=== PATIENT | female | born 1975 | race African-American/Black ===

== ENCOUNTER 2021-02-01 07:42 | Emergency (ER) | payer OTHER ==
[~2021-02-01] VITALS: Ht 170.2 cm; Wt 56.7 kg
[2021-02-01] MEDS ORDERED: ALBUTEROL (0.083%) 2.5MG/3ML NEB HHN STA (07:55)
[2021-02-01] MEDS ORDERED: IPRATROPIUM BROMIDE (0.02%) 0.5MG/2.5ML NEB HHN STA (07:55)
[2021-02-01 08:49] LABS: BASOPHILS % 1.4 % (0.0-2.0); EOSINOPHILS % 0.8 % (0.0-5.0); HEMATOCRIT. 29.9 % (36.0-48.0); HEMOGLOBIN. 9.8 g/dL (12.0-16.0); LYMPHOCYTES % 23.5 % (20.0-50.0); MEAN CORPUSCULAR HEMOGLOBIN 23.7 pg (28.0-32.0); MEAN CORPUSCULAR VOLUME 72.5 fL (81.0-99.0); MONOCYTES % 10.4 % (2.0-8.0); NEUTROPHILS % 63.9 % (40.0-76.0); RED BLOOD CELL COUNT 4.12 mill/uL (4.2-5.4); RED CELL DISTRIBUTION WIDTH 18.9 % (11.6-14.6)
[2021-02-01 08:53] LABS: CHLORIDE 107 mEq/L (98-107)
[2021-02-01 09:02] LABS: CLARITY URINE CLEAR (CLEAR); COLOR URINE YELLOW (YELLOW); KETONES URINE NEGATIVE (NEGATIVE); LEUKOCYTE ESTERASE URINE NEGATIVE (NEGATIVE); NITRITE URINE NEGATIVE (NEGATIVE); OCCULT BLOOD URINE TRACE (NEGATIVE); PH URINE 5.5 (4.5-8.0); PROTEIN URINE 3+ (NEGATIVE); SPECIFIC GRAVITY URINE 1.014 (1.005-1.030); UROBILINOGEN URINE 0.2 E.U./dL (0.2-1.0)
[2021-02-01] MEDS ORDERED: ACETAMINOPHEN 325MG TABLET PO ONE (13:45)
[2021-02-01 14:56] VITALS: BP 155/99
== END 2021-02-01 15:16 | disposition short-term general hospital (02) ==
LOC: ER 07:42
DX: R06.02 Shortness of breath (principal); I10 Essential (primary) hypertension; E11.9 Type 2 diabetes mellitus without complications; Z20.822 Contact with and (suspected) exposure to COVID-19; Z88.0 Allergy status to penicillin
CPT/HCPCS: 36415; 71045; 80053; 81003; 83880; 84484; 85025; 87426; 87804; 93005; 94640; 99285

== ENCOUNTER 2021-10-05 11:04 | Emergency (ER) | payer OTHER, MEDICAID ==
[~2021-10-05] VITALS: Ht 165.1 cm; Wt 68.0 kg
[2021-10-05 13:07] LABS: CHLORIDE 96 mEq/L (98-107)
[2021-10-05 13:15] LABS: HEMATOCRIT. 25.3 % (36.0-48.0); HEMOGLOBIN. 8.2 g/dL (12.0-16.0); MEAN CORPUSCULAR HEMOGLOBIN 22.2 pg (28.0-32.0); MEAN CORPUSCULAR VOLUME 68.4 fL (81.0-99.0); RED BLOOD CELL COUNT 3.69 mill/uL (4.2-5.4); RED CELL DISTRIBUTION WIDTH 20.6 % (11.6-14.6)
[2021-10-05 13:54] LABS: PLATELET 133 x1000/uL (130-400)
[2021-10-05 13:57] LABS: PLATELET ESTIMATE NORMAL
[2021-10-05 13:58] LABS: CLARITY URINE CLEAR (CLEAR); COLOR URINE YELLOW (YELLOW); KETONES URINE 2+ (NEGATIVE); LEUKOCYTE ESTERASE URINE NEGATIVE (NEGATIVE); NITRITE URINE NEGATIVE (NEGATIVE); OCCULT BLOOD URINE 1+ (NEGATIVE); PH URINE 6.5 (4.5-8.0); PROTEIN URINE 3+ (NEGATIVE); SPECIFIC GRAVITY URINE 1.013 (1.005-1.030); UROBILINOGEN URINE 0.2 E.U./dL (0.2-1.0)
[2021-10-05] MEDS ORDERED: SODIUM CHLORIDE 0.9% 1,000 ML IV ONE (14:30)
[2021-10-05] MEDS ORDERED: VANCOMYCIN 1G PREMIX 200 ML IV ONE (14:30)
[2021-10-05] MEDS ORDERED: MEROPENEM 1,000 MG in SODIUM CHLORIDE 0.9% 100 ML IV ONE (14:30)
[2021-10-05] MEDS ORDERED: HYDRALAZINE 20MG/ML VIAL IV ONE (14:30)
[2021-10-05 15:07] LABS: BG BASE EXCESS -0.1 mmol/L (-2.0-2.0); BG CARBOXYHEMOGLOBIN 0.4 % (0.5-1.5); BG DEOXYHEMOGLOBIN 6.3 % (0.0-5.0); BG FRACTION INSPIRED OXYGEN 21; BG HCO3 ACT 23.2 mmol/L (22.0-26.0); BG METHEMOGLOBIN 0.3 % (0.0-1.5); BG OXYGEN SATURATION 93.7 % (92.0-98.5); BG PCO2 32.6 mmHg (35.0-45.0); BG SAMPLE SITE RIGHT RADIAL; BG TOTAL HEMOGLOBIN 9.3 g/dL (12.0-18.0); BG VENT MODE ROOM AIR
[2021-10-05 16:41] VITALS: BP 160/120
== END 2021-10-05 17:40 | disposition short-term general hospital (02) ==
LOC: ER 11:11 → CANBEDREQ 20:13
DX: G93.40 Encephalopathy, unspecified (principal); R00.0 Tachycardia, unspecified; E11.9 Type 2 diabetes mellitus without complications; Z88.3 Allergy status to other anti-infective agents; Z94.2 Lung transplant status; Z86.16 Personal history of COVID-19; Z20.822 Contact with and (suspected) exposure to COVID-19
CPT/HCPCS: 36415; 36600; 70450; 71045; 80053; 81003; 82375; 82805; 82962; 83605; 84145; 84484; 85025; 87040; 87086; 87426; 93005; 96365; 96368; 96375; 99285; J0360; J2185; J3370; J7030; J7050

== ENCOUNTER 2021-11-09 01:21 | Emergency (ER) | payer OTHER, MEDICAID ==
[~2021-11-09] VITALS: Ht 170.2 cm; Wt 53.0 kg
[2021-11-09] MEDS ORDERED: ACETAMINOPHEN 325MG TABLET PO STA (02:22)
[2021-11-09] MEDS ORDERED: PIPERACILLIN/TAZ 3.375G PREMIX 50 ML IV ONE (02:30)
[2021-11-09] MEDS ORDERED: SODIUM CHLORIDE 0.9% 1000ML BAG (SEPSIS BOLUS) IV ONE (02:30)
[2021-11-09] MEDS ORDERED: VANCOMYCIN 1G PREMIX 200 ML IV ONE (02:30)
[2021-11-09 03:12] LABS: BASOPHILS % 0.4 % (0.0-2.0); EOSINOPHILS % 1.5 % (0.0-5.0); HEMATOCRIT. 23.3 % (36.0-48.0); HEMOGLOBIN. 7.6 g/dL (12.0-16.0); LYMPHOCYTES % 18.1 % (20.0-50.0); MEAN CORPUSCULAR VOLUME 70.7 fL (81.0-99.0); MEAN PLATELET VOLUME 8.9 fl (7.4-10.4); MONOCYTES % 12.7 % (2.0-8.0); NEUTROPHILS % 67.3 % (40.0-76.0); PLATELET 262 x1000/uL (130-400); RED BLOOD CELL COUNT 3.29 mill/uL (4.2-5.4); RED CELL DISTRIBUTION WIDTH 20.8 % (11.6-14.6)
[2021-11-09 03:20] LABS: CHLORIDE 100 mEq/L (98-107)
[2021-11-09 03:30] LABS: CREATINE KINASE 20 IU/L (26-192)
[2021-11-09 07:56] LABS: CLARITY URINE CLEAR (CLEAR); COLOR URINE YELLOW (YELLOW); KETONES URINE TRACE (NEGATIVE); LEUKOCYTE ESTERASE URINE NEGATIVE (NEGATIVE); NITRITE URINE NEGATIVE (NEGATIVE); OCCULT BLOOD URINE NEGATIVE (NEGATIVE); PH URINE 5.5 (4.5-8.0); PROTEIN URINE 3+ (NEGATIVE); SPECIFIC GRAVITY URINE 1.017 (1.005-1.030)
[2021-11-09 09:28] VITALS: BP 106/72
== END 2021-11-09 09:42 | disposition short-term general hospital (02) ==
LOC: ER 01:33
DX: R50.9 Fever, unspecified (principal); A41.9 Sepsis, unspecified organism; Z94.2 Lung transplant status; E11.9 Type 2 diabetes mellitus without complications; I48.91 Unspecified atrial fibrillation; G20 Parkinson's disease; Z88.3 Allergy status to other anti-infective agents; Z20.822 Contact with and (suspected) exposure to COVID-19
CPT/HCPCS: 36415; 71045; 80053; 81003; 82550; 83605; 83880; 84145; 84484; 85025; 87040; 87086; 87426; 87804; 93005; 96365; 96366; 96368; 99291; J2543; J3370; J7030

== ENCOUNTER 2022-05-06 19:35 | Inpatient (IN) | payer OTHER, MEDICAID ==
[~2022-05-06] VITALS: Ht 170.2 cm; Wt 65.3 kg
[2022-05-06] MEDS ORDERED: FUROSEMIDE 40MG/4ML VIAL IV ONE (20:15)
[2022-05-06] MEDS ORDERED: NITROGLYCERIN OINT 1GM/INCH UDPKT TD ONE (20:15)
[2022-05-06] MEDS ORDERED: ASPIRIN 81MG TABLET PO ONE (20:15)
[2022-05-06 20:31] LABS: BASOPHILS % 0.2 % (0.0-2.0); EOSINOPHILS % 0.1 % (0.0-5.0); HEMATOCRIT. 25.6 % (36.0-48.0); HEMOGLOBIN. 8.1 g/dL (12.0-16.0); LYMPHOCYTES % 7.7 % (20.0-50.0); MEAN PLATELET VOLUME 8.8 fl (7.4-10.4); MONOCYTES % 4.9 % (2.0-8.0); NEUTROPHILS % 87.1 % (40.0-76.0); PLATELET 144 x1000/uL (130-400); RED CELL DISTRIBUTION WIDTH 17.8 % (11.6-14.6)
[2022-05-06 20:43] LABS: CHLORIDE 94 mEq/L (98-107)
[2022-05-06 20:54] LABS: BG BASE EXCESS 12.3 mmol/L (-2.0-2.0); BG CARBOXYHEMOGLOBIN 1.3 % (0.5-1.5); BG DEOXYHEMOGLOBIN 1.2 % (0.0-5.0); BG FRACTION INSPIRED OXYGEN 60; BG HCO3 ACT 39.8 mmol/L (22.0-26.0); BG METHEMOGLOBIN 0.3 % (0.0-1.5); BG OXYGEN SATURATION 98.8 % (92.0-98.5); BG OXYHEMOGLOBIN 97.2 % (94.0-97.0); BG PCO2 72.2 mmHg (35.0-45.0); BG PH 7.359 (7.350-7.450); BG PO2 255.7 mmHg (75.0-100.0); BG TOTAL HEMOGLOBIN 9.2 g/dL (12.0-18.0); BG VENT MODE MASK - BIPAP
[2022-05-07] VITALS (11 sets, daily range): BP systolic 108–151; BP diastolic 60–86
[2022-05-07] MEDS ORDERED: LEVO50TA8 MT (07:23)
[2022-05-07] MEDS ORDERED: APIX2.5T MT (07:23)
[2022-05-07] MEDS ORDERED: TACR1CAP MT (07:23)
[2022-05-07] MEDS ORDERED: LOPHC2 MT (07:23)
[2022-05-07] MEDS ORDERED: AMLO10TA80 MT (07:23)
[2022-05-07] MEDS ORDERED: TORS10TA17 MT (07:23)
[2022-05-07] MEDS ORDERED: PREG75CA75 PO (07:23)
[2022-05-07] MEDS ORDERED: PRAV20TA57 MT (07:23)
[2022-05-07] MEDS ORDERED: LANS15CA17 MT (07:23)
[2022-05-07] MEDS ORDERED: MEGE40TA8 MT (07:23)
[2022-05-07] MEDS ORDERED: PRED10TA MT (07:23)
[2022-05-07] MEDS ORDERED: METO5TAB2 PO (07:23)
[2022-05-07] MEDS ORDERED: FERR325T6 PO (07:23)
[2022-05-07] MEDS ORDERED: ISAV186C2 MT (07:23)
[2022-05-07] MEDS ORDERED: FOLI0.8T27 PO (07:30)
[2022-05-07] MEDS ORDERED: ALBU05 NEB (07:30)
[2022-05-07] MEDS ORDERED: NON FORMULARY PATIENT HOME MED XX SCH (08:15)
[2022-05-07] MEDS: AMLODIPINE 10MG TABLET PO SCH (09:00)
[2022-05-07] MEDS ORDERED: LANSOPRAZOLE 15MG DR CAPSULE PO SCH (09:00)
[2022-05-07] MEDS: ALBUTEROL (0.083%) 2.5MG/3ML NEB HHN SCH ×3 (09:03→19:33)
[2022-05-07] MEDS ORDERED: DEXTROSE 50% WATER 50ML SYRINGE IV PRN (10:00)
[2022-05-07] MEDS ORDERED: TORSEMIDE 10MG TABLET PO SCH (10:00)
[2022-05-07] MEDS: TACROLIMUS 1MG CAPSULE PO SCH ×2 (10:10→16:44)
[2022-05-07] MEDS: FOLIC ACID/VITAMIN B COMP W-C TABLET PO SCH (10:10)
[2022-05-07] MEDS: PREDNISONE 10MG TABLET PO SCH (10:10)
[2022-05-07] MEDS: PREGABALIN 75MG CAPSULE PO SCH ×2 (10:10→16:44)
[2022-05-07] MEDS: APIXABAN 2.5 MG TABLET PO SCH ×2 (10:10→16:44)
[2022-05-07] MEDS: LEVOTHYROXINE SODIUM 50MCG TABLET PO SCH (10:10)
[2022-05-07] MEDS: MEGESTROL ACETATE 40MG TABLET PO SCH ×2 (10:10→16:44)
[2022-05-07] MEDS: METOCLOPRAMIDE HCL 5MG TABLET PO SCH ×2 (10:11→16:44)
[2022-05-07] MEDS: OMEPRAZOLE 20MG CAPSULE EXTENDED RELEASE PO SCH (10:11)
[2022-05-07] MEDS ORDERED: IPRATROPIUM/ALBUTEROL 0.5-3(2.5)MG/3ML NEB HHN PRN (11:30)
[2022-05-07] MEDS: BLOOD SUGAR DIAGNOSTIC STRIP TEST SCH ×3 (11:50→21:00)
[2022-05-07] MEDS: INSULIN LISPRO 100 UNITS/ML SUBCUT SCH ×3 (12:44→21:15)
[2022-05-07] MEDS: FUROSEMIDE 40MG/4ML VIAL IVP SCH (16:43)
[2022-05-07] MEDS ORDERED: FUROSEMIDE 40MG/4ML VIAL IVP SCH (18:00)
[2022-05-08] VITALS (15 sets, daily range): BP systolic 115–152; BP diastolic 66–135
[2022-05-08] MEDS: ALBUTEROL (0.083%) 2.5MG/3ML NEB HHN SCH ×5 (01:36→20:40)
[2022-05-08 05:36] LABS: BASOPHILS % 0.4 % (0.0-2.0); EOSINOPHILS % 1.1 % (0.0-5.0); HEMATOCRIT. 24.7 % (36.0-48.0); HEMOGLOBIN. 7.8 g/dL (12.0-16.0); LYMPHOCYTES % 15.5 % (20.0-50.0); MEAN CORPUSCULAR HEMOGLOBIN 28.2 pg (28.0-32.0); MEAN CORPUSCULAR VOLUME 89.3 fL (81.0-99.0); MEAN PLATELET VOLUME 9.1 fl (7.4-10.4); MONOCYTES % 8.1 % (2.0-8.0); NEUTROPHILS % 74.9 % (40.0-76.0); PLATELET 124 x1000/uL (130-400); RED BLOOD CELL COUNT 2.76 mill/uL (4.2-5.4); RED CELL DISTRIBUTION WIDTH 17.3 % (11.6-14.6)
[2022-05-08] MEDS: FUROSEMIDE 40MG/4ML VIAL IVP SCH ×2 (06:22→17:29)
[2022-05-08] MEDS: BLOOD SUGAR DIAGNOSTIC STRIP TEST SCH ×4 (08:10→21:00)
[2022-05-08] MEDS: FOLIC ACID/VITAMIN B COMP W-C TABLET PO SCH (08:27)
[2022-05-08] MEDS: LEVOTHYROXINE SODIUM 50MCG TABLET PO SCH (08:27)
[2022-05-08] MEDS: APIXABAN 2.5 MG TABLET PO SCH ×2 (08:27→17:29)
[2022-05-08] MEDS: METOCLOPRAMIDE HCL 5MG TABLET PO SCH ×2 (08:27→17:29)
[2022-05-08] MEDS: PREDNISONE 10MG TABLET PO SCH (08:27)
[2022-05-08] MEDS: OMEPRAZOLE 20MG CAPSULE EXTENDED RELEASE PO SCH (08:27)
[2022-05-08] MEDS: TACROLIMUS 1MG CAPSULE PO SCH ×2 (08:27→17:29)
[2022-05-08] MEDS: MEGESTROL ACETATE 40MG TABLET PO SCH ×2 (08:27→17:29)
[2022-05-08] MEDS: PREGABALIN 75MG CAPSULE PO SCH ×2 (08:29→17:29)
[2022-05-08] MEDS: AMLODIPINE 10MG TABLET PO SCH (08:29)
[2022-05-08] MEDS: INSULIN LISPRO 100 UNITS/ML SUBCUT SCH ×4 (08:30→21:34)
[2022-05-08] MEDS ORDERED: TORSEMIDE 10MG TABLET PO SCH (09:00)
[2022-05-08] MEDS ORDERED: FUROSEMIDE 40MG/4ML VIAL IVP SCH (09:00)
[2022-05-08 12:05] LABS: BG BASE EXCESS 10.4 mmol/L (-2.0-2.0); BG CARBOXYHEMOGLOBIN 0.5 % (0.5-1.5); BG DEOXYHEMOGLOBIN 1.3 % (0.0-5.0); BG FRACTION INSPIRED OXYGEN 60; BG HCO3 ACT 38.6 mmol/L (22.0-26.0); BG METHEMOGLOBIN 0.3 % (0.0-1.5); BG OXYGEN SATURATION 98.7 % (92.0-98.5); BG OXYHEMOGLOBIN 97.9 % (94.0-97.0); BG PCO2 82.2 mmHg (35.0-45.0); BG PO2 208.1 mmHg (75.0-100.0); BG SAMPLE SITE RIGHT RADIAL; BG TOTAL HEMOGLOBIN 8.2 g/dL (12.0-18.0); BG VENT MODE MASK - SIMPLE
[2022-05-08] MEDS ORDERED: METOLAZONE 2.5MG TABLET PO SCH (12:15)
[2022-05-08] MEDS ORDERED: HYDROMORPHONE HCL 2MG TABLET PO SCH (12:15)
[2022-05-08] MEDS ORDERED: NALOXONE HCL 0.4MG/ML VIAL IV PRN (17:30)
[2022-05-09] VITALS (12 sets, daily range): BP systolic 109–148; BP diastolic 58–86
[2022-05-09] MEDS: ALBUTEROL (0.083%) 2.5MG/3ML NEB HHN SCH ×4 (02:56→20:47)
[2022-05-09 06:03] LABS: HEMATOCRIT 23.6 % (36.0-48.0); HEMOGLOBIN 7.6 g/dL (12.0-16.0); MEAN CORPUSCULAR HEMOGLOBIN 28.7 pg (28.0-32.0); MEAN CORPUSCULAR VOLUME 89.4 fL (81.0-99.0); PLATELET 106 x1000/uL (130-400); RED BLOOD CELL COUNT 2.64 mill/uL (4.2-5.4); RED CELL DISTRIBUTION WIDTH 17.7 % (11.6-14.6)
[2022-05-09] MEDS: FUROSEMIDE 40MG/4ML VIAL IVP SCH ×2 (06:45→17:35)
[2022-05-09] MEDS: BLOOD SUGAR DIAGNOSTIC STRIP TEST SCH ×4 (07:52→21:00)
[2022-05-09] MEDS: INSULIN LISPRO 100 UNITS/ML SUBCUT SCH ×5 (07:52→21:12)
[2022-05-09] MEDS: LEVOTHYROXINE SODIUM 50MCG TABLET PO SCH (07:55)
[2022-05-09] MEDS: OMEPRAZOLE 20MG CAPSULE EXTENDED RELEASE PO SCH (07:55)
[2022-05-09] MEDS: PREDNISONE 10MG TABLET PO SCH (09:04)
[2022-05-09] MEDS: PREGABALIN 75MG CAPSULE PO SCH ×2 (09:04→17:35)
[2022-05-09] MEDS: METOCLOPRAMIDE HCL 5MG TABLET PO SCH ×2 (09:04→17:35)
[2022-05-09] MEDS: AMLODIPINE 10MG TABLET PO SCH (09:04)
[2022-05-09] MEDS: TACROLIMUS 1MG CAPSULE PO SCH ×2 (09:04→17:35)
[2022-05-09] MEDS: MEGESTROL ACETATE 40MG TABLET PO SCH ×2 (09:05→17:35)
[2022-05-09] MEDS: FOLIC ACID/VITAMIN B COMP W-C TABLET PO SCH (09:07)
[2022-05-09] MEDS: APIXABAN 2.5 MG TABLET PO SCH ×2 (09:08→15:54)
[2022-05-09 13:32] LABS: BG BASE EXCESS 18.4 mmol/L (-2.0-2.0); BG CARBOXYHEMOGLOBIN 0.8 % (0.5-1.5); BG DEOXYHEMOGLOBIN 2.5 % (0.0-5.0); BG FRACTION INSPIRED OXYGEN 40; BG METHEMOGLOBIN 0.3 % (0.0-1.5); BG OXYGEN SATURATION 97.5 % (92.0-98.5); BG OXYHEMOGLOBIN 96.4 % (94.0-97.0); BG PCO2 80.8 mmHg (35.0-45.0); BG PH 7.373 (7.350-7.450); BG PO2 113.8 mmHg (75.0-100.0); BG SAMPLE SITE RIGHT RADIAL; BG TOTAL HEMOGLOBIN 7.8 g/dL (12.0-18.0); BG VENT MODE MASK - BIPAP
[2022-05-10] VITALS (12 sets, daily range): BP systolic 103–147; BP diastolic 53–95
[2022-05-10] MEDS: ALBUTEROL (0.083%) 2.5MG/3ML NEB HHN SCH ×4 (02:25→18:00)
[2022-05-10] MEDS: FUROSEMIDE 40MG/4ML VIAL IVP SCH ×2 (06:20→17:31)
[2022-05-10] MEDS ORDERED: LACTULOSE 20G/30ML UDC PO PRN (07:15)
[2022-05-10] MEDS: BLOOD SUGAR DIAGNOSTIC STRIP TEST SCH ×4 (07:30→21:00)
[2022-05-10] MEDS ORDERED: METOLAZONE 2.5MG TABLET PO SCH (08:00)
[2022-05-10] MEDS: DOCUSATE SODIUM 250MG CAPSULE PO SCH (08:47)
[2022-05-10] MEDS: MEGESTROL ACETATE 40MG TABLET PO SCH ×2 (08:47→17:31)
[2022-05-10] MEDS: OMEPRAZOLE 20MG CAPSULE EXTENDED RELEASE PO SCH (08:47)
[2022-05-10] MEDS: PREGABALIN 75MG CAPSULE PO SCH ×2 (08:47→17:31)
[2022-05-10] MEDS: LEVOTHYROXINE SODIUM 50MCG TABLET PO SCH (08:47)
[2022-05-10] MEDS: PREDNISONE 10MG TABLET PO SCH (08:48)
[2022-05-10] MEDS: METOCLOPRAMIDE HCL 5MG TABLET PO SCH ×2 (08:48→17:31)
[2022-05-10] MEDS: FOLIC ACID/VITAMIN B COMP W-C TABLET PO SCH (08:48)
[2022-05-10] MEDS: APIXABAN 2.5 MG TABLET PO SCH (08:48)
[2022-05-10] MEDS: TACROLIMUS 1MG CAPSULE PO SCH ×2 (08:48→17:31)
[2022-05-10] MEDS: INSULIN LISPRO 100 UNITS/ML SUBCUT SCH ×4 (08:49→22:02)
[2022-05-10] MEDS: AMLODIPINE 10MG TABLET PO SCH (08:51)
[2022-05-10] MEDS: PANTOPRAZOLE SODIUM 40 MG/VIAL IV SCH (15:00)
[2022-05-10 15:50] LABS: TOTAL IRON BINDING CAPACITY 310 ug/dL (250-450)
[2022-05-10 16:12] LABS: FERRITIN 326 ng/mL (10-291)
[2022-05-10 16:13] LABS: FOLIC ACID (FOLATE) SERUM >20 ng/mL ng/mL (>5.38); VITAMIN B12 SERUM 547 pg/mL (211-911)
[2022-05-10] MEDS: HYDROMORPHONE HCL 2MG TABLET PO PRN (18:38)
[2022-05-11] VITALS (13 sets, daily range): BP systolic 118–136; BP diastolic 69–84
[2022-05-11] MEDS: LEVOTHYROXINE SODIUM 50MCG TABLET PO SCH (06:24)
[2022-05-11] MEDS: FUROSEMIDE 40MG/4ML VIAL IVP SCH ×2 (06:24→17:32)
[2022-05-11] MEDS: BLOOD SUGAR DIAGNOSTIC STRIP TEST SCH ×4 (07:30→20:31)
[2022-05-11] MEDS: INSULIN LISPRO 100 UNITS/ML SUBCUT SCH ×4 (08:00→20:40)
[2022-05-11 08:11] LABS: BASOPHILS % 0.4 % (0.0-2.0); EOSINOPHILS % 1.2 % (0.0-5.0); HEMATOCRIT. 26.4 % (36.0-48.0); HEMOGLOBIN. 8.6 g/dL (12.0-16.0); LYMPHOCYTES % 18.7 % (20.0-50.0); MEAN CORPUSCULAR HEMOGLOBIN 28.9 pg (28.0-32.0); MEAN CORPUSCULAR VOLUME 89.3 fL (81.0-99.0); MEAN PLATELET VOLUME 9.7 fl (7.4-10.4); MONOCYTES % 8.8 % (2.0-8.0); NEUTROPHILS % 70.9 % (40.0-76.0); PLATELET 110 x1000/uL (130-400); RED BLOOD CELL COUNT 2.96 mill/uL (4.2-5.4)
[2022-05-11] MEDS: ALBUTEROL (0.083%) 2.5MG/3ML NEB HHN SCH ×4 (08:17→20:36)
[2022-05-11] MEDS: TACROLIMUS 1MG CAPSULE PO SCH ×2 (08:56→17:32)
[2022-05-11] MEDS: PREDNISONE 10MG TABLET PO SCH (08:56)
[2022-05-11] MEDS: MEGESTROL ACETATE 40MG TABLET PO SCH ×2 (08:56→17:32)
[2022-05-11] MEDS: PREGABALIN 75MG CAPSULE PO SCH ×2 (08:56→17:32)
[2022-05-11] MEDS: PANTOPRAZOLE SODIUM 40 MG/VIAL IV SCH (08:56)
[2022-05-11] MEDS: AMLODIPINE 10MG TABLET PO SCH (08:57)
[2022-05-11] MEDS: DOCUSATE SODIUM 250MG CAPSULE PO SCH (08:57)
[2022-05-11] MEDS: METOCLOPRAMIDE HCL 5MG TABLET PO SCH ×2 (08:57→17:32)
[2022-05-11] MEDS ORDERED: ENOXAPARIN 40MG/0.4ML SYR SUBCUT SCH (09:00)
[2022-05-11] MEDS: FOLIC ACID/VITAMIN B COMP W-C TABLET PO SCH (09:03)
[2022-05-11] MEDS: ASPIRIN 81MG TABLET PO SCH (09:03)
[2022-05-11] MEDS: ACETAMINOPHEN 325MG TABLET PO PRN (10:54)
[2022-05-11] MEDS ORDERED: METO2.5T2 MT (11:16)
[2022-05-11] MEDS ORDERED: IRON SUCROSE COMPLEX 100 MG/5 ML ML IV NR (13:15)
[2022-05-11] MEDS: APIXABAN 2.5 MG TABLET PO SCH (17:35)
[2022-05-11] MEDS: HYDROMORPHONE HCL 2MG TABLET PO PRN (20:08)
[2022-05-12] VITALS (12 sets, daily range): BP systolic 121–146; BP diastolic 74–88
[2022-05-12] MEDS: ALBUTEROL (0.083%) 2.5MG/3ML NEB HHN SCH ×4 (02:07→20:47)
[2022-05-12] MEDS: ONDANSETRON HCL 4MG/2ML INJ IV PRN (04:43)
[2022-05-12] MEDS: FUROSEMIDE 40MG/4ML VIAL IVP SCH (06:20)
[2022-05-12] MEDS: LEVOTHYROXINE SODIUM 50MCG TABLET PO SCH (06:20)
[2022-05-12 07:40] LABS: BASOPHILS % 0.4 % (0.0-2.0); EOSINOPHILS % 0.7 % (0.0-5.0); HEMATOCRIT. 25.9 % (36.0-48.0); HEMOGLOBIN. 8.4 g/dL (12.0-16.0); LYMPHOCYTES % 10.6 % (20.0-50.0); MEAN CORPUSCULAR HEMOGLOBIN 28.7 pg (28.0-32.0); MONOCYTES % 10.3 % (2.0-8.0); PLATELET 99 x1000/uL (130-400); RED BLOOD CELL COUNT 2.91 mill/uL (4.2-5.4); RED CELL DISTRIBUTION WIDTH 16.6 % (11.6-14.6)
[2022-05-12] MEDS: BLOOD SUGAR DIAGNOSTIC STRIP TEST SCH ×4 (07:57→21:47)
[2022-05-12] MEDS: INSULIN LISPRO 100 UNITS/ML SUBCUT SCH ×4 (08:00→21:00)
[2022-05-12] MEDS: AMLODIPINE 10MG TABLET PO SCH (09:55)
[2022-05-12] MEDS: PREGABALIN 75MG CAPSULE PO SCH ×2 (09:55→18:31)
[2022-05-12] MEDS: METOCLOPRAMIDE HCL 5MG TABLET PO SCH ×2 (09:56→18:30)
[2022-05-12] MEDS: APIXABAN 2.5 MG TABLET PO SCH ×2 (09:56→18:37)
[2022-05-12] MEDS: DOCUSATE SODIUM 250MG CAPSULE PO SCH (09:56)
[2022-05-12] MEDS: TACROLIMUS 1MG CAPSULE PO SCH ×2 (09:56→18:31)
[2022-05-12] MEDS: FOLIC ACID/VITAMIN B COMP W-C TABLET PO SCH (09:56)
[2022-05-12] MEDS: ASPIRIN 81MG TABLET PO SCH (09:56)
[2022-05-12] MEDS: MEGESTROL ACETATE 40MG TABLET PO SCH ×2 (09:56→18:31)
[2022-05-12] MEDS: PREDNISONE 10MG TABLET PO SCH (09:56)
[2022-05-12] MEDS: FAMOTIDINE 20MG/2ML VIAL IV SCH (09:59)
[2022-05-12] MEDS ORDERED: METOPROLOL TARTRATE 25MG TABLET PO NR (11:30)
[2022-05-12] MEDS ORDERED: CEFTRIAXONE 1 G PREMIX 50 ML IV SCH (14:00)
[2022-05-12] MEDS ORDERED: IRON SUCROSE COMPLEX 100 MG/5 ML ML IV SCH (16:30)
[2022-05-12] MEDS: CEFTRIAXONE 1,000 MG in DEXTROSE 5% WATER 50 ML IV SCH (16:46)
[2022-05-12 18:07] LABS: CLARITY URINE CLEAR (CLEAR); COLOR URINE YELLOW (YELLOW); KETONES URINE NEGATIVE (NEGATIVE); LEUKOCYTE ESTERASE URINE NEGATIVE (NEGATIVE); NITRITE URINE NEGATIVE (NEGATIVE); OCCULT BLOOD URINE 3+ (NEGATIVE); PROTEIN URINE 3+ (NEGATIVE); SPECIFIC GRAVITY URINE 1.012 (1.005-1.030); UROBILINOGEN URINE 0.2 E.U./dL (0.2-1.0)
[2022-05-12] MEDS: FUROSEMIDE 40MG TABLET PO SCH (18:31)
[2022-05-12] MEDS: METOPROLOL TARTRATE 25MG TABLET PO SCH (21:47)
[2022-05-12] MEDS: BENZONATATE 100MG CAPSULE PO SCH (22:47)
[2022-05-12] MEDS ORDERED: BENZONATATE 200MG CAPSULE PO SCH (23:00)
[2022-05-13] VITALS (13 sets, daily range): BP systolic 113–143; BP diastolic 64–91
[2022-05-13] MEDS: ALBUTEROL (0.083%) 2.5MG/3ML NEB HHN SCH ×4 (02:36→20:55)
[2022-05-13] MEDS: BLOOD SUGAR DIAGNOSTIC STRIP TEST SCH ×4 (07:48→20:50)
[2022-05-13] MEDS: INSULIN LISPRO 100 UNITS/ML SUBCUT SCH ×4 (08:00→20:50)
[2022-05-13] MEDS: ASPIRIN 81MG TABLET PO SCH ×2 (08:54→09:00)
[2022-05-13] MEDS: FAMOTIDINE 20MG/2ML VIAL IV SCH (08:54)
[2022-05-13] MEDS: DOCUSATE SODIUM 250MG CAPSULE PO SCH (08:55)
[2022-05-13] MEDS: BENZONATATE 100MG CAPSULE PO SCH ×3 (08:55→17:51)
[2022-05-13] MEDS: FOLIC ACID/VITAMIN B COMP W-C TABLET PO SCH (08:55)
[2022-05-13] MEDS: METOCLOPRAMIDE HCL 5MG TABLET PO SCH ×2 (08:55→17:51)
[2022-05-13] MEDS: APIXABAN 2.5 MG TABLET PO SCH ×2 (08:55→17:52)
[2022-05-13] MEDS: TACROLIMUS 1MG CAPSULE PO SCH ×2 (08:55→17:52)
[2022-05-13] MEDS: PREDNISONE 10MG TABLET PO SCH (08:55)
[2022-05-13] MEDS: LEVOTHYROXINE SODIUM 50MCG TABLET PO SCH (08:55)
[2022-05-13] MEDS: FUROSEMIDE 40MG TABLET PO SCH ×2 (08:55→17:51)
[2022-05-13] MEDS: PREGABALIN 75MG CAPSULE PO SCH ×2 (08:55→17:51)
[2022-05-13] MEDS: METOPROLOL TARTRATE 25MG TABLET PO SCH ×2 (08:56→20:53)
[2022-05-13] MEDS: MEGESTROL ACETATE 40MG TABLET PO SCH ×2 (08:56→17:51)
[2022-05-13] MEDS ORDERED: BENZONATATE 200MG CAPSULE PO SCH (09:00)
[2022-05-13] MEDS: CEFTRIAXONE 1,000 MG in DEXTROSE 5% WATER 50 ML IV SCH (12:08)
[2022-05-13 12:45] LABS: BASOPHILS % 0.5 % (0.0-2.0); EOSINOPHILS % 1.2 % (0.0-5.0); HEMATOCRIT. 28.1 % (36.0-48.0); HEMOGLOBIN. 9.1 g/dL (12.0-16.0); LYMPHOCYTES % 12.8 % (20.0-50.0); MEAN CORPUSCULAR HEMOGLOBIN 28.8 pg (28.0-32.0); MEAN CORPUSCULAR VOLUME 88.7 fL (81.0-99.0); MEAN PLATELET VOLUME 9.1 fl (7.4-10.4); MONOCYTES % 7.3 % (2.0-8.0); NEUTROPHILS % 78.2 % (40.0-76.0); PLATELET 116 x1000/uL (130-400); RED BLOOD CELL COUNT 3.17 mill/uL (4.2-5.4); RED CELL DISTRIBUTION WIDTH 16.5 % (11.6-14.6)
[2022-05-13 13:00] LABS: CHLORIDE 94 mEq/L (98-107)
[2022-05-14] VITALS (12 sets, daily range): BP systolic 103–126; BP diastolic 59–84
[2022-05-14] MEDS: ALBUTEROL (0.083%) 2.5MG/3ML NEB HHN SCH ×4 (01:14→21:04)
[2022-05-14 06:56] LABS: BASOPHILS % 0.5 % (0.0-2.0); EOSINOPHILS % 1.2 % (0.0-5.0); HEMATOCRIT. 26.8 % (36.0-48.0); HEMOGLOBIN. 8.7 g/dL (12.0-16.0); LYMPHOCYTES % 16.2 % (20.0-50.0); MEAN CORPUSCULAR HEMOGLOBIN 28.7 pg (28.0-32.0); MEAN PLATELET VOLUME 9.3 fl (7.4-10.4); MONOCYTES % 8.1 % (2.0-8.0); PLATELET 114 x1000/uL (130-400); RED BLOOD CELL COUNT 3.04 mill/uL (4.2-5.4); RED CELL DISTRIBUTION WIDTH 16.1 % (11.6-14.6)
[2022-05-14] MEDS: METOCLOPRAMIDE HCL 5MG TABLET PO SCH ×2 (08:04→17:56)
[2022-05-14] MEDS: PREDNISONE 10MG TABLET PO SCH (08:04)
[2022-05-14] MEDS: PREGABALIN 75MG CAPSULE PO SCH ×2 (08:04→17:57)
[2022-05-14] MEDS: LEVOTHYROXINE SODIUM 50MCG TABLET PO SCH (08:04)
[2022-05-14] MEDS: FOLIC ACID/VITAMIN B COMP W-C TABLET PO SCH (08:04)
[2022-05-14] MEDS: FUROSEMIDE 40MG TABLET PO SCH ×2 (08:04→17:57)
[2022-05-14] MEDS: APIXABAN 2.5 MG TABLET PO SCH ×2 (08:04→17:56)
[2022-05-14] MEDS: FAMOTIDINE 20MG/2ML VIAL IV SCH (08:04)
[2022-05-14] MEDS: MEGESTROL ACETATE 40MG TABLET PO SCH ×2 (08:05→17:56)
[2022-05-14] MEDS: DOCUSATE SODIUM 250MG CAPSULE PO SCH (08:05)
[2022-05-14] MEDS: METOPROLOL TARTRATE 25MG TABLET PO SCH ×2 (08:05→20:05)
[2022-05-14] MEDS: BENZONATATE 100MG CAPSULE PO SCH ×3 (08:05→17:57)
[2022-05-14] MEDS: BLOOD SUGAR DIAGNOSTIC STRIP TEST SCH ×4 (08:09→20:09)
[2022-05-14] MEDS: INSULIN LISPRO 100 UNITS/ML SUBCUT SCH ×4 (08:09→20:08)
[2022-05-14] MEDS: ASPIRIN 81MG TABLET PO SCH (08:10)
[2022-05-14] MEDS: TACROLIMUS 1MG CAPSULE PO SCH ×2 (08:12→17:57)
[2022-05-14] MEDS: CEFTRIAXONE 1,000 MG in DEXTROSE 5% WATER 50 ML IV SCH (13:00)
[2022-05-14 13:28] LABS: BG BASE EXCESS 9.7 mmol/L (-2.0-2.0); BG CARBOXYHEMOGLOBIN 0.1 % (0.5-1.5); BG DEOXYHEMOGLOBIN 0.9 % (0.0-5.0); BG FRACTION INSPIRED OXYGEN 100; BG HCO3 ACT 36.9 mmol/L (22.0-26.0); BG METHEMOGLOBIN 0.3 % (0.0-1.5); BG OXYGEN SATURATION 99.1 % (92.0-98.5); BG OXYHEMOGLOBIN 98.7 % (94.0-97.0); BG PCO2 67.2 mmHg (35.0-45.0); BG PH 7.358 (7.350-7.450); BG PO2 347.7 mmHg (75.0-100.0); BG SAMPLE SITE RIGHT RADIAL; BG TOTAL HEMOGLOBIN 9.6 g/dL (12.0-18.0); BG VENT MODE MASK - NRB
[2022-05-14] MEDS: ONDANSETRON HCL 4MG/2ML INJ IV PRN (22:17)
[2022-05-15] VITALS (13 sets, daily range): BP systolic 103–130; BP diastolic 64–93
[2022-05-15] MEDS: ALBUTEROL (0.083%) 2.5MG/3ML NEB HHN SCH ×4 (02:13→20:20)
[2022-05-15] MEDS: BLOOD SUGAR DIAGNOSTIC STRIP TEST SCH ×4 (07:30→20:15)
[2022-05-15] MEDS: INSULIN LISPRO 100 UNITS/ML SUBCUT SCH ×4 (08:00→20:27)
[2022-05-15 08:15] LABS: BASOPHILS % 0.5 % (0.0-2.0); EOSINOPHILS % 1.1 % (0.0-5.0); HEMATOCRIT. 27.1 % (36.0-48.0); HEMOGLOBIN. 8.7 g/dL (12.0-16.0); LYMPHOCYTES % 19.8 % (20.0-50.0); MEAN CORPUSCULAR HEMOGLOBIN 28.4 pg (28.0-32.0); MEAN CORPUSCULAR VOLUME 88.2 fL (81.0-99.0); MEAN PLATELET VOLUME 9.7 fl (7.4-10.4); MONOCYTES % 8.7 % (2.0-8.0); NEUTROPHILS % 69.9 % (40.0-76.0); PLATELET 122 x1000/uL (130-400); RED BLOOD CELL COUNT 3.07 mill/uL (4.2-5.4); RED CELL DISTRIBUTION WIDTH 16.3 % (11.6-14.6)
[2022-05-15] MEDS: APIXABAN 2.5 MG TABLET PO SCH ×2 (09:00→18:03)
[2022-05-15] MEDS: FOLIC ACID/VITAMIN B COMP W-C TABLET PO SCH (09:00)
[2022-05-15] MEDS: ASPIRIN 81MG TABLET PO SCH (09:00)
[2022-05-15] MEDS: PREGABALIN 75MG CAPSULE PO SCH ×2 (10:09→18:00)
[2022-05-15] MEDS: FAMOTIDINE 20MG/2ML VIAL IV SCH (10:09)
[2022-05-15] MEDS: LEVOTHYROXINE SODIUM 50MCG TABLET PO SCH (10:10)
[2022-05-15] MEDS: METOPROLOL TARTRATE 25MG TABLET PO SCH ×2 (10:10→20:17)
[2022-05-15] MEDS: BENZONATATE 100MG CAPSULE PO SCH ×3 (10:11→18:00)
[2022-05-15] MEDS: FUROSEMIDE 40MG TABLET PO SCH ×2 (10:11→18:00)
[2022-05-15] MEDS: TACROLIMUS 1MG CAPSULE PO SCH ×2 (10:11→18:00)
[2022-05-15] MEDS: PREDNISONE 10MG TABLET PO SCH (10:11)
[2022-05-15] MEDS: METOCLOPRAMIDE HCL 5MG TABLET PO SCH ×2 (10:11→18:00)
[2022-05-15] MEDS: MEGESTROL ACETATE 40MG TABLET PO SCH ×2 (10:12→18:01)
[2022-05-15] MEDS ORDERED: METOLAZONE 2.5MG TABLET PO NR (11:30)
[2022-05-15] MEDS: DOCUSATE SODIUM 250MG CAPSULE PO SCH (11:59)
[2022-05-15] MEDS: CEFTRIAXONE 1,000 MG in DEXTROSE 5% WATER 50 ML IV SCH (13:47)
[2022-05-15] MEDS: ONDANSETRON HCL 4MG/2ML INJ IV PRN (20:17)
[2022-05-16] VITALS (11 sets, daily range): BP systolic 102–140; BP diastolic 61–91
[2022-05-16] MEDS: ALBUTEROL (0.083%) 2.5MG/3ML NEB HHN SCH ×3 (02:02→14:24)
[2022-05-16] MEDS: INSULIN LISPRO 100 UNITS/ML SUBCUT SCH ×4 (08:00→21:09)
[2022-05-16] MEDS: FOLIC ACID/VITAMIN B COMP W-C TABLET PO SCH (08:22)
[2022-05-16] MEDS: METOCLOPRAMIDE HCL 5MG TABLET PO SCH ×2 (08:22→17:03)
[2022-05-16] MEDS: APIXABAN 2.5 MG TABLET PO SCH ×2 (08:22→17:04)
[2022-05-16] MEDS: FAMOTIDINE 20MG/2ML VIAL IV SCH (08:22)
[2022-05-16] MEDS: LEVOTHYROXINE SODIUM 50MCG TABLET PO SCH (08:22)
[2022-05-16] MEDS: PREGABALIN 75MG CAPSULE PO SCH ×2 (08:22→17:03)
[2022-05-16] MEDS: PREDNISONE 10MG TABLET PO SCH (08:22)
[2022-05-16] MEDS: TACROLIMUS 1MG CAPSULE PO SCH ×2 (08:22→17:03)
[2022-05-16] MEDS: FUROSEMIDE 40MG TABLET PO SCH ×2 (08:23→17:04)
[2022-05-16] MEDS: METOPROLOL TARTRATE 25MG TABLET PO SCH ×2 (08:23→21:06)
[2022-05-16] MEDS: MEGESTROL ACETATE 40MG TABLET PO SCH ×2 (08:23→17:03)
[2022-05-16] MEDS: DOCUSATE SODIUM 250MG CAPSULE PO SCH (08:23)
[2022-05-16] MEDS: BENZONATATE 100MG CAPSULE PO SCH ×3 (08:23→17:03)
[2022-05-16] MEDS: ASPIRIN 81MG TABLET PO SCH (08:23)
[2022-05-16] MEDS: BLOOD SUGAR DIAGNOSTIC STRIP TEST SCH ×4 (08:38→21:00)
[2022-05-16 10:09] LABS: BASOPHILS % 0.3 % (0.0-2.0); EOSINOPHILS % 1.2 % (0.0-5.0); HEMATOCRIT. 25.8 % (36.0-48.0); HEMOGLOBIN. 8.5 g/dL (12.0-16.0); LYMPHOCYTES % 19.1 % (20.0-50.0); MEAN CORPUSCULAR VOLUME 87.4 fL (81.0-99.0); MEAN PLATELET VOLUME 8.8 fl (7.4-10.4); MONOCYTES % 8.8 % (2.0-8.0); NEUTROPHILS % 70.6 % (40.0-76.0); PLATELET 132 x1000/uL (130-400); RED BLOOD CELL COUNT 2.95 mill/uL (4.2-5.4); RED CELL DISTRIBUTION WIDTH 15.6 % (11.6-14.6)
[2022-05-16] MEDS: CEFTRIAXONE 1,000 MG in DEXTROSE 5% WATER 50 ML IV SCH (13:44)
[2022-05-17] VITALS (11 sets, daily range): BP systolic 116–142; BP diastolic 47–93
[2022-05-17] MEDS: ALBUTEROL (0.083%) 2.5MG/3ML NEB HHN SCH ×4 (02:32→15:11)
[2022-05-17] MEDS: BLOOD SUGAR DIAGNOSTIC STRIP TEST SCH ×3 (07:30→18:10)
[2022-05-17] MEDS: INSULIN LISPRO 100 UNITS/ML SUBCUT SCH ×3 (08:00→18:40)
[2022-05-17] MEDS: DOCUSATE SODIUM 250MG CAPSULE PO SCH (08:20)
[2022-05-17] MEDS: ASPIRIN 81MG TABLET PO SCH (08:20)
[2022-05-17] MEDS: PREDNISONE 10MG TABLET PO SCH (08:21)
[2022-05-17] MEDS: FOLIC ACID/VITAMIN B COMP W-C TABLET PO SCH (08:21)
[2022-05-17] MEDS: MEGESTROL ACETATE 40MG TABLET PO SCH ×2 (08:21→18:33)
[2022-05-17] MEDS: APIXABAN 2.5 MG TABLET PO SCH ×2 (08:21→18:31)
[2022-05-17] MEDS: FUROSEMIDE 40MG TABLET PO SCH ×2 (08:21→18:16)
[2022-05-17] MEDS: BENZONATATE 100MG CAPSULE PO SCH ×2 (08:21→13:24)
[2022-05-17] MEDS: PREGABALIN 75MG CAPSULE PO SCH ×2 (08:21→18:18)
[2022-05-17] MEDS: METOCLOPRAMIDE HCL 5MG TABLET PO SCH ×2 (08:21→18:31)
[2022-05-17] MEDS: TACROLIMUS 1MG CAPSULE PO SCH ×2 (08:21→18:18)
[2022-05-17] MEDS: METOPROLOL TARTRATE 25MG TABLET PO SCH (08:21)
[2022-05-17] MEDS: FAMOTIDINE 20MG/2ML VIAL IV SCH (08:22)
[2022-05-17] MEDS: LEVOTHYROXINE SODIUM 50MCG TABLET PO SCH (08:22)
[2022-05-17] MEDS: ACETAMINOPHEN 325MG TABLET PO PRN (08:22)
[2022-05-17 09:58] LABS: BASOPHILS % 0.6 % (0.0-2.0); EOSINOPHILS % 1.3 % (0.0-5.0); HEMATOCRIT. 27.8 % (36.0-48.0); HEMOGLOBIN. 9.1 g/dL (12.0-16.0); LYMPHOCYTES % 16.1 % (20.0-50.0); MEAN CORPUSCULAR HEMOGLOBIN 28.8 pg (28.0-32.0); MEAN CORPUSCULAR VOLUME 88.2 fL (81.0-99.0); MEAN PLATELET VOLUME 8.9 fl (7.4-10.4); MONOCYTES % 7.5 % (2.0-8.0); NEUTROPHILS % 74.5 % (40.0-76.0); PLATELET 148 x1000/uL (130-400); RED BLOOD CELL COUNT 3.15 mill/uL (4.2-5.4); RED CELL DISTRIBUTION WIDTH 15.9 % (11.6-14.6)
[2022-05-17] MEDS ORDERED: SENNOSIDES/DOCUSATE SOD 8.6/50MG TABLET PO NR (14:00)
[2022-05-17] MEDS: CEFTRIAXONE 1,000 MG in DEXTROSE 5% WATER 50 ML IV SCH (14:19)
[2022-05-17] MEDS ORDERED: BENZONATATE 200MG CAPSULE PO SCH (17:14)
[2022-05-18] MEDS ORDERED: SENNOSIDES/DOCUSATE SOD 8.6/50MG TABLET PO PRN (21:00)
== END 2022-05-18 00:11 | disposition home health service (06) | DRG 208 ==
LOC: ER 19:35 → MICUSO 05-07 00:38 → 5EST 05-07 02:22
PROVIDERS: ADMIT Internal Medicine; ATTEND Internal Medicine
PROC: 5A09357 Assistance with Respiratory Ventilation, Less than 24 Consecutive Hours, Continuous Positive Airway Pressure (ICD-10-PCS; 2022-05-06)
PROC: 5A09357 Assistance with Respiratory Ventilation, Less than 24 Consecutive Hours, Continuous Positive Airway Pressure (ICD-10-PCS; 2022-05-07)
PROC: 5A09357 Assistance with Respiratory Ventilation, Less than 24 Consecutive Hours, Continuous Positive Airway Pressure (ICD-10-PCS; 2022-05-08)
PROC: 5A1935Z Respiratory Ventilation, Less than 24 Consecutive Hours (ICD-10-PCS; principal; 2022-05-09)
PROC: 5A09357 Assistance with Respiratory Ventilation, Less than 24 Consecutive Hours, Continuous Positive Airway Pressure (ICD-10-PCS; 2022-05-09)
PROC: 5A09457 Assistance with Respiratory Ventilation, 24-96 Consecutive Hours, Continuous Positive Airway Pressure (ICD-10-PCS; 2022-05-10)
PROC: 5A09357 Assistance with Respiratory Ventilation, Less than 24 Consecutive Hours, Continuous Positive Airway Pressure (ICD-10-PCS; 2022-05-12)
PROC: 5A09357 Assistance with Respiratory Ventilation, Less than 24 Consecutive Hours, Continuous Positive Airway Pressure (ICD-10-PCS; 2022-05-13)
PROC: 5A09357 Assistance with Respiratory Ventilation, Less than 24 Consecutive Hours, Continuous Positive Airway Pressure (ICD-10-PCS; 2022-05-14)
PROC: 5A09357 Assistance with Respiratory Ventilation, Less than 24 Consecutive Hours, Continuous Positive Airway Pressure (ICD-10-PCS; 2022-05-15)
PROC: 5A09357 Assistance with Respiratory Ventilation, Less than 24 Consecutive Hours, Continuous Positive Airway Pressure (ICD-10-PCS; 2022-05-16)
PROC: 5A09357 Assistance with Respiratory Ventilation, Less than 24 Consecutive Hours, Continuous Positive Airway Pressure (ICD-10-PCS; 2022-05-17)
DX: J96.22 Acute and chronic respiratory failure with hypercapnia (principal); I50.33 Acute on chronic diastolic (congestive) heart failure; I13.0 Hypertensive heart and chronic kidney disease with heart failure and stage 1 through stage 4 chronic kidney disease, or unspecified chronic kidney disease; E87.1 Hypo-osmolality and hyponatremia; E72.20 Disorder of urea cycle metabolism, unspecified; Z94.2 Lung transplant status; N17.9 Acute kidney failure, unspecified; Z20.822 Contact with and (suspected) exposure to COVID-19; D63.1 Anemia in chronic kidney disease; I48.91 Unspecified atrial fibrillation; N18.9 Chronic kidney disease, unspecified; M34.9 Systemic sclerosis, unspecified; E03.9 Hypothyroidism, unspecified; K21.9 Gastro-esophageal reflux disease without esophagitis; E11.22 Type 2 diabetes mellitus with diabetic chronic kidney disease; D69.6 Thrombocytopenia, unspecified; E78.5 Hyperlipidemia, unspecified; Z88.8 Allergy status to other drugs, medicaments and biological substances; Z99.81 Dependence on supplemental oxygen; Z79.01 Long term (current) use of anticoagulants; J96.21 Acute and chronic respiratory failure with hypoxia
CPT/HCPCS: 36415; 36600; 71045; 76604; 80048; 80053; 81003; 82140; 82375; 82607; 82728; 82746; 82805; 82962; 83036; 83540; 83550; 83880; 84484; 85025; 85027; 85044; 87426; 93005; 93306; 93971; 94640; 94660; 97110; 97116; 97162; 97166; 97530; 99291; C1893; C9113; J0696; J1815; J1940; J2405; J3490; J7060; J7507; J7512; J8597

== ENCOUNTER 2022-05-24 22:04 | Inpatient (IN) | payer OTHER, MEDICAID ==
[~2022-05-24] VITALS: Ht 162.6 cm; Wt 65.4 kg
[~2022-05-24 22:04] MED LIST: ALBU05 NEB; AMLO10TA80 MT; APIX2.5T MT; FERR325T6 PO; FOLI0.8T27 PO; ISAV186C2 MT; LANS15CA17 MT; LEVO50TA8 MT; LOPHC2 MT; MEGE40TA8 MT; METO2.5T2 MT; METO5TAB2 PO; PRAV20TA57 MT; PRED10TA MT; PREG75CA75 PO; TACR1CAP MT; TORS10TA17 MT
[2022-05-24] MEDS ORDERED: METHYLPREDNISOLONE SOD SUCC 125 MG/2 ML VIAL IV STA (22:06)
[2022-05-24] MEDS ORDERED: IPRATROPIUM BROMIDE (0.02%) 0.5MG/2.5ML NEB HHN STA (22:06)
[2022-05-24] MEDS ORDERED: ALBUTEROL (0.083%) 2.5MG/3ML NEB HHN SCH (22:30)
[2022-05-24 22:40] LABS: BASOPHILS % 0.5 % (0.0-2.0); EOSINOPHILS % 2.3 % (0.0-5.0); HEMOGLOBIN. 9.9 g/dL (12.0-16.0); LYMPHOCYTES % 19.9 % (20.0-50.0); MEAN CORPUSCULAR HEMOGLOBIN 28.1 pg (28.0-32.0); MEAN CORPUSCULAR VOLUME 85.4 fL (81.0-99.0); MEAN PLATELET VOLUME 8.8 fl (7.4-10.4); NEUTROPHILS % 71.3 % (40.0-76.0); PLATELET 260 x1000/uL (130-400); RED BLOOD CELL COUNT 3.51 mill/uL (4.2-5.4); RED CELL DISTRIBUTION WIDTH 15.2 % (11.6-14.6)
[2022-05-24 22:51] LABS: CHLORIDE 97 mEq/L (98-107)
[2022-05-25] VITALS (9 sets, daily range): BP systolic 131–168; BP diastolic 87–107
[2022-05-25] MEDS ORDERED: SODIUM BICARBONATE 8.4% 1 MEQ/ML 50ML SYR IV NR (00:15)
[2022-05-25] MEDS ORDERED: CALCIUM CHLORIDE 1GM/10ML SYR IV NR (00:15)
[2022-05-25] MEDS ORDERED: INSULIN REGULAR (HUMULIN R) 300UNITS/3ML VIAL IV NR (00:15)
[2022-05-25] MEDS ORDERED: DEXTROSE 50% WATER 50ML SYRINGE IV NR (00:15)
[2022-05-25] MEDS ORDERED: MAGNESIUM/ALUMINUM HYDROXIDE/SIMETHICONE 30ML UDC PO PRN (01:00)
[2022-05-25] MEDS ORDERED: LEVOFLOXACIN 750MG PREMIX 150 ML IV SCH (01:00)
[2022-05-25] MEDS ORDERED: HYDROCODONE/ACETAMINOPHEN 5/325MG TABLET PO PRN (01:00)
[2022-05-25] MEDS ORDERED: ONDANSETRON HCL 4MG/2ML INJ IV PRN (01:00)
[2022-05-25] MEDS ORDERED: CLONIDINE 0.1MG TABLET PO PRN (01:00)
[2022-05-25] MEDS ORDERED: ACETAMINOPHEN 650MG/20.3ML UDC GT PRN (01:00)
[2022-05-25] MEDS ORDERED: GUAIFENESIN 200MG/10ML SUGAR FREE UDC PO PRN (01:00)
[2022-05-25] MEDS ORDERED: DEXTROSE 50% WATER 50ML SYRINGE IV PRN (01:00)
[2022-05-25] MEDS ORDERED: DOCUSATE SODIUM 100MG CAPSULE PO PRN (01:00)
[2022-05-25] MEDS ORDERED: IPRATROPIUM/ALBUTEROL 0.5-3(2.5)MG/3ML NEB HHN PRN (01:00)
[2022-05-25 04:30] LABS: T4 FREE 1.31 ng/dL (0.76-1.46)
[2022-05-25 06:01] LABS: HEMATOCRIT. 25.2 % (36.0-48.0); HEMOGLOBIN. 8.6 g/dL (12.0-16.0); MEAN CORPUSCULAR HEMOGLOBIN 28.7 pg (28.0-32.0); MEAN CORPUSCULAR VOLUME 84.3 fL (81.0-99.0); MEAN PLATELET VOLUME 8.9 fl (7.4-10.4); PLATELET 225 x1000/uL (130-400); RED BLOOD CELL COUNT 2.99 mill/uL (4.2-5.4)
[2022-05-25 06:34] LABS: CHLORIDE 98 mEq/L (98-107)
[2022-05-25 06:40] LABS: HDL CHOLESTEROL 38 mg/dL (40-59); LDL CHOLESTEROL 76 mg/dL (5-100)
[2022-05-25 06:43] LABS: FOLIC ACID (FOLATE) SERUM > 20.00 ng/mL (>5.38); VITAMIN B12 SERUM 561 pg/mL (211-911)
[2022-05-25 07:03] LABS: FERRITIN 655 ng/mL (10-291)
[2022-05-25] MEDS: BLOOD SUGAR DIAGNOSTIC STRIP TEST SCH ×4 (07:30→20:57)
[2022-05-25] MEDS: INSULIN LISPRO 100 UNITS/ML SUBCUT SCH ×4 (08:00→21:06)
[2022-05-25] MEDS: METOCLOPRAMIDE HCL 5MG TABLET PO SCH (09:00)
[2022-05-25] MEDS ORDERED: METOPROLOL MT SCH (09:00)
[2022-05-25] MEDS ORDERED: [UNRECOGNIZED DRUG - OTHER] MT SCH (09:00)
[2022-05-25] MEDS ORDERED: METOPROLOL TARTRATE 100MG TABLET PO SCH (09:00)
[2022-05-25] MEDS ORDERED: MEDICATION NOT ON FORMULARY EA (Pravastatin Sodium 1 TAB) MT SCH (09:00)
[2022-05-25] MEDS ORDERED: LANSOPRAZOLE 15MG DR CAPSULE PO SCH (09:00)
[2022-05-25] MEDS ORDERED: HYDROCHLOROTHIAZIDE MT SCH (09:00)
[2022-05-25] MEDS: FOLIC ACID/VITAMIN B COMP W-C TABLET PO SCH (09:00)
[2022-05-25] MEDS ORDERED: ISAVUCONAZONIUM SULFATE MT SCH (09:00)
[2022-05-25] MEDS ORDERED: HYDROCHLOROTHIAZIDE 25MG TABLET PO SCH (09:00)
[2022-05-25 10:41] LABS: PLATELET ESTIMATE NORMAL
[2022-05-25] MEDS: PANTOPRAZOLE 40MG DR TABLET PO SCH (10:41)
[2022-05-25] MEDS: ACETAMINOPHEN 325MG TABLET PO PRN (10:42)
[2022-05-25] MEDS: AMLODIPINE 10MG TABLET PO SCH (10:44)
[2022-05-25] MEDS: TACROLIMUS 1MG CAPSULE PO SCH ×2 (10:44→18:32)
[2022-05-25] MEDS: LEVOTHYROXINE SODIUM 50MCG TABLET PO SCH (10:45)
[2022-05-25] MEDS: MEGESTROL ACETATE 40MG TABLET PO SCH ×2 (10:45→18:33)
[2022-05-25] MEDS: PREDNISONE 10MG TABLET PO SCH (10:47)
[2022-05-25] MEDS: APIXABAN 2.5 MG TABLET PO SCH ×2 (11:03→18:32)
[2022-05-25] MEDS: TORSEMIDE 10MG TABLET PO SCH (11:39)
[2022-05-25] MEDS ORDERED: LEVOFLOXACIN 750MG PREMIX 150 ML IV NR (16:30)
[2022-05-25] MEDS: ATORVASTATIN CALCIUM 10MG TABLET PO SCH (20:49)
[2022-05-26] VITALS (12 sets, daily range): BP systolic 135–171; BP diastolic 71–101
[2022-05-26] MEDS: PANTOPRAZOLE 40MG DR TABLET PO SCH (05:49)
[2022-05-26] MEDS: LEVOTHYROXINE SODIUM 50MCG TABLET PO SCH (05:50)
[2022-05-26 06:43] LABS: HEMATOCRIT. 26.7 % (36.0-48.0); HEMOGLOBIN. 8.9 g/dL (12.0-16.0); LYMPHOCYTES % 9.3 % (20.0-50.0); MEAN CORPUSCULAR HEMOGLOBIN 28.1 pg (28.0-32.0); MEAN CORPUSCULAR VOLUME 84.4 fL (81.0-99.0); MEAN PLATELET VOLUME 9.2 fl (7.4-10.4); MONOCYTES % 6.6 % (2.0-8.0); NEUTROPHILS % 84.1 % (40.0-76.0); PLATELET 285 x1000/uL (130-400); RED BLOOD CELL COUNT 3.16 mill/uL (4.2-5.4); RED CELL DISTRIBUTION WIDTH 15.2 % (11.6-14.6)
[2022-05-26 07:13] LABS: CHLORIDE 94 mEq/L (98-107)
[2022-05-26] MEDS: BLOOD SUGAR DIAGNOSTIC STRIP TEST SCH ×4 (07:30→21:09)
[2022-05-26] MEDS ORDERED: SODIUM POLYSTYRENE SULFONATE 15 G/60 ML BOT PO NR (08:45)
[2022-05-26] MEDS: MEGESTROL ACETATE 40MG TABLET PO SCH ×2 (09:13→17:19)
[2022-05-26] MEDS: TACROLIMUS 1MG CAPSULE PO SCH ×2 (09:13→17:19)
[2022-05-26] MEDS: METOCLOPRAMIDE HCL 5MG TABLET PO SCH (09:14)
[2022-05-26] MEDS: PREDNISONE 10MG TABLET PO SCH (09:14)
[2022-05-26] MEDS: AMLODIPINE 10MG TABLET PO SCH (09:14)
[2022-05-26] MEDS: INSULIN LISPRO 100 UNITS/ML SUBCUT SCH ×4 (09:15→21:06)
[2022-05-26] MEDS: METOPROLOL TARTRATE 100MG TABLET PO SCH ×2 (09:28→21:04)
[2022-05-26] MEDS: FOLIC ACID/VITAMIN B COMP W-C TABLET PO SCH (09:28)
[2022-05-26] MEDS: APIXABAN 2.5 MG TABLET PO SCH ×2 (09:29→17:19)
[2022-05-26] MEDS: TORSEMIDE 10MG TABLET PO SCH (09:30)
[2022-05-26] MEDS: FLUOXETINE HCL 10 MG CAPSULE PO SCH (17:20)
[2022-05-26] MEDS: ACETAMINOPHEN 325MG TABLET PO PRN (21:03)
[2022-05-26] MEDS: ATORVASTATIN CALCIUM 10MG TABLET PO SCH (21:03)
[2022-05-26] MEDS: TRAZODONE HCL 50MG TABLET PO SCH (21:04)
[2022-05-27] VITALS (8 sets, daily range): BP systolic 122–147; BP diastolic 83–96
[2022-05-27 04:37] LABS: BASOPHILS % 0.3 % (0.0-2.0); EOSINOPHILS % 0.6 % (0.0-5.0); HEMATOCRIT. 29.1 % (36.0-48.0); HEMOGLOBIN. 9.6 g/dL (12.0-16.0); LYMPHOCYTES % 11.1 % (20.0-50.0); MEAN CORPUSCULAR HEMOGLOBIN 27.9 pg (28.0-32.0); MEAN CORPUSCULAR VOLUME 84.7 fL (81.0-99.0); MEAN PLATELET VOLUME 8.4 fl (7.4-10.4); MONOCYTES % 5.3 % (2.0-8.0); NEUTROPHILS % 82.7 % (40.0-76.0); PLATELET 284 x1000/uL (130-400); RED BLOOD CELL COUNT 3.44 mill/uL (4.2-5.4); RED CELL DISTRIBUTION WIDTH 14.6 % (11.6-14.6)
[2022-05-27 04:54] LABS: CHLORIDE 101 mEq/L (98-107)
[2022-05-27] MEDS: BLOOD SUGAR DIAGNOSTIC STRIP TEST SCH ×4 (07:30→20:15)
[2022-05-27] MEDS: INSULIN LISPRO 100 UNITS/ML SUBCUT SCH ×4 (08:00→20:16)
[2022-05-27] MEDS: PANTOPRAZOLE 40MG DR TABLET PO SCH (09:29)
[2022-05-27] MEDS: TORSEMIDE 10MG TABLET PO SCH (09:29)
[2022-05-27] MEDS: AMLODIPINE 10MG TABLET PO SCH (09:29)
[2022-05-27] MEDS: METOPROLOL TARTRATE 100MG TABLET PO SCH ×2 (09:29→20:54)
[2022-05-27] MEDS: FOLIC ACID/VITAMIN B COMP W-C TABLET PO SCH (09:29)
[2022-05-27] MEDS: TACROLIMUS 1MG CAPSULE PO SCH ×2 (09:30→17:41)
[2022-05-27] MEDS: APIXABAN 2.5 MG TABLET PO SCH ×2 (09:30→17:41)
[2022-05-27] MEDS: LEVOTHYROXINE SODIUM 50MCG TABLET PO SCH (09:30)
[2022-05-27] MEDS: FLUOXETINE HCL 10 MG CAPSULE PO SCH (09:30)
[2022-05-27] MEDS: METOCLOPRAMIDE HCL 5MG TABLET PO SCH (09:30)
[2022-05-27] MEDS: PREDNISONE 10MG TABLET PO SCH (09:33)
[2022-05-27] MEDS: MEGESTROL ACETATE 40MG TABLET PO SCH ×2 (09:35→17:41)
[2022-05-27] MEDS ORDERED: NALOXONE HCL 0.4MG/ML VIAL IV PRN (19:00)
[2022-05-27] MEDS: TRAZODONE HCL 50MG TABLET PO SCH (20:32)
[2022-05-27] MEDS: ATORVASTATIN CALCIUM 10MG TABLET PO SCH (20:32)
== END 2022-05-27 20:35 | disposition short-term general hospital (02) | DRG 291 ==
LOC: ER 22:04 → MICUSO 23:10 → ENRESERV 23:43 → 5EST 05-25 06:23
PROVIDERS: ADMIT Internal Medicine Nephrology; ATTEND Internal Medicine Nephrology
PROC: 5A09357 Assistance with Respiratory Ventilation, Less than 24 Consecutive Hours, Continuous Positive Airway Pressure (ICD-10-PCS; principal; 2022-05-24)
DX: I13.0 Hypertensive heart and chronic kidney disease with heart failure and stage 1 through stage 4 chronic kidney disease, or unspecified chronic kidney disease (principal); I50.41 Acute combined systolic (congestive) and diastolic (congestive) heart failure; J96.21 Acute and chronic respiratory failure with hypoxia; J96.22 Acute and chronic respiratory failure with hypercapnia; N17.9 Acute kidney failure, unspecified; Z94.2 Lung transplant status; E44.1 Mild protein-calorie malnutrition; M34.9 Systemic sclerosis, unspecified; Z20.822 Contact with and (suspected) exposure to COVID-19; E11.22 Type 2 diabetes mellitus with diabetic chronic kidney disease; E83.52 Hypercalcemia; E87.5 Hyperkalemia; D63.8 Anemia in other chronic diseases classified elsewhere; I48.91 Unspecified atrial fibrillation; J44.9 Chronic obstructive pulmonary disease, unspecified; Z66 Do not resuscitate; D72.825 Bandemia; I16.0 Hypertensive urgency; R41.0 Disorientation, unspecified; E03.9 Hypothyroidism, unspecified; E87.8 Other disorders of electrolyte and fluid balance, not elsewhere classified; D72.829 Elevated white blood cell count, unspecified; F32.9 Major depressive disorder, single episode, unspecified; F11.10 Opioid abuse, uncomplicated; F13.10 Sedative, hypnotic or anxiolytic abuse, uncomplicated; Z88.8 Allergy status to other drugs, medicaments and biological substances; Z79.899 Other long term (current) drug therapy; Z68.24 Body mass index [BMI] 24.0-24.9, adult; Z99.81 Dependence on supplemental oxygen; Z79.01 Long term (current) use of anticoagulants; Z79.890 Hormone replacement therapy; Z91.19 Patient's noncompliance with other medical treatment and regimen; N18.30 Chronic kidney disease, stage 3 unspecified
CPT/HCPCS: 36415; 71045; 80053; 80061; 80197; 82330; 82607; 82728; 82746; 82962; 83036; 83540; 83550; 83605; 83880; 84145; 84439; 84443; 84484; 85025; 87426; 93005; 93970; 94640; 94660; 99291; J1815; J1956; J2930; J3490; J7507; J7512; J8597